=== PATIENT | male | born 1945 | race Caucasian/White ===

== ENCOUNTER 2017-03-25 15:00 | Inpatient (IN) | payer MEDICARE, OTHER ==
[~2017-03-25] VITALS: Ht 180.3 cm; Wt 98.4 kg
--- NOTE | ~2017-03-25 | OP ---
PATIENT NAME: KATIE ARMSTRONG MEDICAL RECORD: [id number] :43 LOCATION:[facility] D.CV08 ADMISSION DATE:03/25/17 SURGEON: KRYS SHRESTHA MD DATE OF OPERATION: 03/26/2017 SURGEON: Krys Shrestha MD. ANESTHESIA: General endotracheal, Dr. Dobson. OPERATION PERFORMED: Left carotid endarterectomy with patch angioplasty. PREOPERATIVE DIAGNOSIS: Critical left internal carotid artery stenosis. POSTOPERATIVE DIAGNOSIS: Critical left internal carotid artery stenosis. INDICATION FOR OPERATION: Critical left internal carotid artery stenosis. FINDINGS AT OPERATION: Critical left internal carotid artery stenosis. There were no EEG changes with clamping or unclamping of the carotid artery. ESTIMATED BLOOD LOSS: Less than 100 mL. DESCRIPTION OF PROCEDURE: After informed consent, adequate preoperative medication and evaluation, the patient was brought to the operating room, placed on table in supine position. After induction of general endotracheal anesthesia and application of appropriate monitoring devices, the left neck was prepped and draped in a sterile field, utilizing Betadine scrub, alcohol, and Betadine solution. A Betadine-impregnated drape was also used. An oblique incision was made in the skin crease. Dissection was carried down the fascia. Hemostasis maintained with electrocautery. Facial vein was identified and divided. Utilizing sharp dissection, the common carotid, internal and external carotid arteries were dissected free from surrounding structures, protecting the neurological structures. The patient was given a calculated dose of heparin. After 3 minutes, clamps were applied. After 2 minutes, no EEG changes. The arteriotomy was made and extended with Go scissors. Artery underwent endarterectomy sharply. Artery underwent extensive debridement and irrigation. Utilizing a vascular patch and running 7-0 Prolene suture, the arteriotomy was closed with patch angioplasty technique. All maneuvers to remove trapped air were performed. The clamps were removed sequentially. There were no EEG changes. The patient was given a calculated dose of protamine to reverse the heparin. Hemostasis was achieved. A #7 Arley-Mckinney drain was left in the depth of wound and brought to the base of the neck. Neck was again irrigated. Instrument count and sponge count were correct times 2. Neck was closed in layers utilizing 3-0 Vicryl on the platysma, 5-0 subcuticular Monocryl on the skin. Sterile dressings were applied. The patient tolerated the procedure well and was transferred to the CV ICU in satisfactory condition. TRANSINT:[id number] Voice Confirmation ID: [id number] DOCUMENT ID: [id number] OPERATIVE REPORT [id number] KATIE ARMSTRONG EDWARD MD CC: [id number] DICTATION DATE: 03/26/17 1045 BOAT ENGINE MECHANIC: 03/26/17 1114 ADM IN [place] [id number] [place] [id number]
--- NOTE | ~2017-03-25 | HP ---
PATIENT: KATIE ARMSTRONG MEDICAL RECORD: [id number] ACCOUNT: [id number] LOCATION:D.MS [id number] : 43 ADMISSION DATE: 03/25/17 HISTORY AND PHYSICAL EXAMINATION CHIEF COMPLAINT: Slurred speech. HISTORY OF PRESENT ILLNESS: A 71-year-old white male patient of [facility], who presents for followup of recent TIA. He has had a few of them now, most recent one lasted only a few seconds a couple days ago in which he was talking to his family and then all of a sudden, just could not talk and could not communicate at all. No facial drooping at that time; however, he has had it on previous episodes. We did an ultrasound of his carotid arteries last week, which showed occlusion of the left internal carotid artery and some blockage in the right external carotid artery. At that time, we will order a CTA and a referral to CT surgery; however, since he has had another episode over the weekend, we will admit him today directly to the hospital. REVIEW OF SYSTEMS: CONSTITUTIONAL: No fever or chills. CARDIOVASCULAR: No chest pain. RESPIRATORY: No cough or wheeze. GASTROINTESTINAL: No nausea, vomiting or diarrhea. GENITOURINARY: No dysuria. NEUROLOGIC: See HPI. PAST MEDICAL HISTORY: 1. Coronary artery disease. 2. Hyperlipidemia. 3. Hypertension. 4. Type 2 diabetes. 5. TIA. PAST SURGICAL HISTORY: Multiple rotator cuff surgeries on both shoulders, knee surgery and coronary artery stent, last one in 2011. SOCIAL HISTORY: The patient is , has 3 children, lives in [place]. 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 Nonsmoker. Drinks alcohol occasionally. ALLERGIES: PENICILLIN. MEDICATIONS: Glipizide 10 mg twice a day, atorvastatin 80 mg at night, Invokana 300 mg a day, metformin 1000 mg twice a day, Toprol-XL 50 mg a day, Ranexa 500 mg twice a day, valsartan with hydrochlorothiazide 160/25 daily, isosorbide mononitrate 30 mg daily, aspirin 81 mg a day, Victoza as directed, and Plavix 75 mg a day. PHYSICAL EXAMINATION: VITAL SIGNS: Height 5 feet 11 inches, weight 228. Temperature 98.1, pulse 79, O2 sat 94% on room air. GENERAL: No acute distress. HEENT: Normocephalic, atraumatic. NECK: Supple. LUNGS: Clear to auscultation bilaterally. HISTORY AND PHYSICAL [id number] KATIE ARMSTRONG CARDIOVASCULAR: Regular rate and rhythm. GASTROINTESTINAL: Soft, nontender to palpation. NEUROLOGIC: Awake, alert, oriented times 3. Cranial nerves II-XII grossly intact. ASSESSMENT: 1. Transient ischemic attack. 2. Carotid artery stenosis. 3. Hypertension. 4. Coronary artery disease. 5. Yer-rwdwiok-cgxtvjrue diabetes. 6. History of benign cerebral meningioma. PLAN: We will admit the patient to the hospital. Get CTA of the carotids and consult ____. TRANSINT:[id number] Voice Confirmation ID: [id number] DOCUMENT ID: [id number] REINALDO PARSON MD CC: [id number] DICTATION DATE: 03/25/17 1431 DIRECTOR HRIS: 03/25/17 1529 ADM IN [place] [id number] [place] [address]
[2017-03-25 15:57] LABS: BASOPHILS 0.2 % (0-2); EOSINOPHILS 2.9 % (0-7); HEMATOCRIT 43.6 % (42.0-54.0); HEMOGLOBIN 14.6 g/dL (13.5-17.5); IMMATURE GRANULOCYTES 0.4 % (0-5); LYMPHOCYTES 23.9 % (15-50); MCH 31.1 pg (26.0-34.0); MCHC 33.5 g/dL (31.0-37.0); MCV 92.8 fL (80.0-100.0); MEAN PLATELET VOLUME 10.1 fL (7.4-10.4); MONOCYTES 7.1 % (2-11); NEUTROPHILS 65.5 % (40-80); PLATELET COUNT 209 10x3/uL (130-400); RDW 13.1 % (11.5-14.5); WBC 10.2 10x3/uL (4.8-10.8)
[2017-03-25 16:06] VITALS: BP 117/74; Ht 180.3 cm; Wt 98.4 kg
[2017-03-25 16:16] LABS: INR 0.96 (0.85-1.17); PROTIME 12.6 SECONDS (11.6-15.0)
[2017-03-25 16:29] LABS: ALBUMIN 4.3 g/dL (3.4-5.0); ALKALINE PHOSPHATASE 75 U/L (46-116); ALT (SGPT) 36 U/L (10-68); BILIRUBIN - TOTAL 0.43 mg/dL (0.2-1.3); CALC OSMOLALITY 279 mosm/kg (275-300); CALCIUM 9.6 mg/dL (8.5-10.1); CARBON DIOXIDE 24.3 mmol/L (21.0-32.0); CHLORIDE - SERUM 103 mmol/L (98-107); GLUCOSE 80 mg/dL (74-106); POTASSIUM - SERUM 4.1 mmol/L (3.5-5.1); PROTEIN - SERUM 7.2 g/dL (6.4-8.2); SODIUM 140 mmol/L (136-145); UREA NITROGEN 19 mg/dL (7-18); eGFR NON AFRICAN AMERICAN 78 mL/min (90-120)
[2017-03-25 20:00] VITALS: BP 132/76
[2017-03-25 21:46] LABS: APPEARANCE CLEAR (CLEAR); BILIRUBIN NEGATIVE (NEGATIVE); COLOR YELLOW (YELLOW); GLUCOSE 1000 mg/dL (NEGATIVE); KETONE NEGATIVE (NEGATIVE); LEUKOCYTE ESTERASE NEGATIVE (NEGATIVE); NITRITE NEGATIVE (NEGATIVE); PROTEIN NEGATIVE (NEGATIVE); SPECIFIC GRAVITY 1.015 (1.005-1.020); UROBILINOGEN NORMAL (NORMAL)
--- NOTE | 2017-03-25 22:26 | NUR ---
PATIENT ALERT AND ORIENTED. NEURO CHECK WNL. NO SIGNS OF DISTRESS NOTED. CONSENTS SIGNS. SCHEDULED MEDS GIVEN. SHIFT ASSESSMENT COMPLETED. DENIES ANY NEEDS AT THIS TIME. BED LOW. CALL LIGHT IN REACH
[2017-03-26] VITALS (37 sets, daily range): BP systolic 103–160; BP diastolic 48–81
--- NOTE | 2017-03-26 01:53 | NUR ---
PATIENT RESTING IN BED WITH EYES CLOSED. NO VISBLE SIGNS OF DISTRESS. BED IN LOWEST POSITION AND CALL LIGHT WITHIN REACH.
--- NOTE | 2017-03-26 04:02 | NUR ---
HEPARIN STOPPED PER ORDER. NO NEEDS VOICED AT THIS TIME
[2017-03-26 06:18] LABS: BASOPHILS 0.1 % (0-2); EOSINOPHILS 3.5 % (0-7); HEMATOCRIT 42.4 % (42.0-54.0); HEMOGLOBIN 14.1 g/dL (13.5-17.5); IMMATURE GRANULOCYTES 0.4 % (0-5); LYMPHOCYTES 22.1 % (15-50); MCH 30.9 pg (26.0-34.0); MCHC 33.3 g/dL (31.0-37.0); MCV 92.8 fL (80.0-100.0); MEAN PLATELET VOLUME 10.1 fL (7.4-10.4); MONOCYTES 5.8 % (2-11); NEUTROPHILS 68.1 % (40-80); PLATELET COUNT 181 10x3/uL (130-400); RBC 4.57 10x6/uL (4.20-6.10); RDW 13.2 % (11.5-14.5)
[2017-03-26 06:25] LABS: WBC 7.4 10x3/uL (4.8-10.8)
[2017-03-26 06:45] LABS: ALBUMIN 3.7 g/dL (3.4-5.0); ALKALINE PHOSPHATASE 58 U/L (46-116); ALT (SGPT) 37 U/L (10-68); CALCIUM 8.8 mg/dL (8.5-10.1); CARBON DIOXIDE 25.4 mmol/L (21.0-32.0); CHLORIDE - SERUM 103 mmol/L (98-107); CHOL - HDL RATIO 3.9 ratio (2.3-4.9); CHOLESTEROL, TOTAL 128 mg/dL (0-200); CREATININE - SERUM 0.9 mg/dL (0.6-1.3); HDL CHOLESTEROL 33 mg/dL (32-96); POTASSIUM - SERUM 4.2 mmol/L (3.5-5.1); PROTEIN - SERUM 6.6 g/dL (6.4-8.2); SODIUM 139 mmol/L (136-145); UREA NITROGEN 15 mg/dL (7-18); eGFR NON AFRICAN AMERICAN 88 mL/min (90-120)
[2017-03-26 06:47] LABS: CALC OSMOLALITY 281 mosm/kg (275-300); GLUCOSE 158 mg/dL (74-106); TRIGLYCERIDE 519 mg/dL (30-200)
--- NOTE | 2017-03-26 10:55 | NUR ---
ADMIT TO CV ICU. VSS. DOPAMINE 2.5MCG. NO CO AT TIME.
--- NOTE | 2017-03-26 15:00 | NUR ---
CARE ASSUMED. VSS AT THIS TIME. WILL CONT TO ASSESS.
--- NOTE | 2017-03-26 16:15 | NUR ---
PRN ULTRAM ADMINISTERED FOR INSICIONAL PAIN. REFER TO EMAR.
--- NOTE | 2017-03-26 17:00 | NUR ---
PLACED FRESH ICE IN ICE PACK TO PLACE OVER INSICION SITE. PT DENIES NEEDS AT THIS TIME. CALL LIGHT IN REACH. BED IN LOW POSITION. WILL CONT TO ASSESS.
--- NOTE | 2017-03-26 19:00 | NUR ---
REPORT RECEIVED AND ASSESSMENT COMPLETED. SEE FLOWSHEET FOR FULL DETAILS. PT DENIES PAIN, AND HAS NO SIGNS OF SWELLING OR HEMATOMA. VSS. WILL MONITOR FOR CHANGES THROUGHOUT SHIFT
--- NOTE | 2017-03-26 21:00 | NUR ---
NO CHANGES IN STATUS AT THIS TIME. VSS. WILL MONITOR.
--- NOTE | 2017-03-26 23:00 | NUR ---
REASSESSMENT COMPLETED. SEE FLOWSHEET FOR FULL DETAILS. VSS. WILL CONTINUE TO MONITOR.
[2017-03-27] VITALS (34 sets, daily range): BP systolic 98–147; BP diastolic 47–68
--- NOTE | 2017-03-27 01:00 | NUR ---
CLEVIPREX ADJUSTED TO 3.25/HR NO OTHER CHANGES IN STATUS AT THIS TIME. VSS WILL MONITOR
--- NOTE | 2017-03-27 03:00 | NUR ---
REASSESSMENT COMPLETED. SEE FLOWSHEET FOR FULL DETAILS.VSS. WILL MONITOR
--- NOTE | 2017-03-27 05:00 | NUR ---
NO CHANGES I NSTATUS AT THIS TIME. VSS. WILL CONTINUE TO MONITOR.
[2017-03-27 06:19] LABS: BASOPHILS 0.2 % (0-2); EOSINOPHILS 1.9 % (0-7); HEMOGLOBIN 13.9 g/dL (13.5-17.5); IMMATURE GRANULOCYTES 0.3 % (0-5); LYMPHOCYTES 10.6 % (15-50); MCH 30.6 pg (26.0-34.0); MCHC 33.1 g/dL (31.0-37.0); MCV 92.5 fL (80.0-100.0); MEAN PLATELET VOLUME 9.6 fL (7.4-10.4); MONOCYTES 5.8 % (2-11); NEUTROPHILS 81.2 % (40-80); PLATELET COUNT 201 10x3/uL (130-400); RBC 4.54 10x6/uL (4.20-6.10); RDW 13.1 % (11.5-14.5)
[2017-03-27 06:31] LABS: WBC 11.6 10x3/uL (4.8-10.8)
[2017-03-27 06:59] LABS: ALBUMIN 3.8 g/dL (3.4-5.0); ALKALINE PHOSPHATASE 51 U/L (46-116); ALT (SGPT) 33 U/L (10-68); BILIRUBIN - TOTAL 0.76 mg/dL (0.2-1.3); CALC OSMOLALITY 276 mosm/kg (275-300); CALCIUM 8.7 mg/dL (8.5-10.1); CARBON DIOXIDE 25.2 mmol/L (21.0-32.0); CHLORIDE - SERUM 101 mmol/L (98-107); GLUCOSE 129 mg/dL (74-106); POTASSIUM - SERUM 3.9 mmol/L (3.5-5.1); PROTEIN - SERUM 6.9 g/dL (6.4-8.2); SODIUM 138 mmol/L (136-145); eGFR NON AFRICAN AMERICAN 78 mL/min (90-120)
[2017-03-27 07:03] LABS: UREA NITROGEN 11 mg/dL (7-18)
--- NOTE | 2017-03-27 07:30 | NUR ---
REPORT RECIEVED FROM MANAGER BIOLOGICS NURSE. PT RESTING IN BED QUIETLY. NO S/SX OF ACUTE DISTRESS NOTED AT THIS TIME. ASSISTED UP IN BED. BREAKFAST TRAY PLACED ON BEDSIDE TABLE. REFRESHED ICE WATER. CALL LIGHT IN REACH. BED IN LOW POSITION. FULL ASSESSMENT COMPLETE PER FLOWSHEET. WILL CONT TO ASSESS FOR CHANGES THROUGHOUT SHIFT.
--- NOTE | 2017-03-27 08:30 | NUR ---
DR. SHRESTHA AT BEDSIDE. STATED TO REMOVE A-LINE AND CARL CATHETER. REMOVED PER ORDERS WITH NO ISSUES NOTED. URINAL PLACED IN REACH. OPSITE DRESSING PLACED OVER RIGHT WRIST. WILL MONITOR.
--- NOTE | 2017-03-27 10:00 | NUR ---
ITEMS PLACED IN BATHROOM FOR PT TO GIVE HIMSELF A BATH. DENIED ASSISTANCE. INTRUCTED TO PULL CALL LIGHT STRING IN BATHROOM IF THERE WAS ANYTHING HE NEEDED. LINEN CHANGE PROVIDED. TOOTH BRUSH AND TOOTH PASTE PROVIDED.
[2017-03-27] MEDS ORDERED: PLAVIX75 MG PO (10:22)
[2017-03-27] MEDS ORDERED: ISOSORBIDE MONO30 M1 PO (10:22)
[2017-03-27] MEDS ORDERED: BYDUREON P2 MG/0.65 SC (10:22)
[2017-03-27] MEDS ORDERED: VICTOZA0.6 MG/0.1 SQ (10:22)
[2017-03-27] MEDS ORDERED: RANEXA500 MG PO (10:23)
[2017-03-27] MEDS ORDERED: GLUCOPHAGE1000 MG PO (10:23)
[2017-03-27] MEDS ORDERED: GLIPIZIDE10 MG PO (10:23)
[2017-03-27] MEDS ORDERED: DIOVAN HCT 160/1 TA1 PO (10:23)
[2017-03-27] MEDS ORDERED: TOPROL XL50 MG PO (10:23)
[2017-03-27] MEDS ORDERED: LIPITOR80 MG PO (10:23)
[2017-03-27] MEDS ORDERED: INVOKANA300 MG PO (10:24)
[2017-03-27] MEDS ORDERED: RANEXA1000 MG PO (10:24)
--- NOTE | 2017-03-27 11:00 | NUR ---
BROTHER AT BEDSIDE AWAITING DISCHARGE.
--- NOTE | 2017-03-27 12:00 | NUR ---
FSBS CHECKED. LUNCH TRAY PLACED IN REACH. DENIES FURTHER NEEDS.
[2017-03-27] MEDS ORDERED: ASPIRIN81 MG PO (13:17)
[2017-03-27] MEDS ORDERED: ULTRAM50 MG PO (13:20)
--- NOTE | 2017-03-27 13:45 | NUR ---
DISCHARGE INSTRUCTIONS REVIWED WITH PT. QUESTIONS ANSWERED. RIGHT DL SC REMOVED PER ORDERS. CATH INTACT. OPSITE DRESSING PLACED OVER SITE. WHEELED OUT FOR TRANSPORTAION.
== END 2017-03-27 14:00 | disposition home or self-care (01) | DRG 39 ==
LOC: D.MS 15:00 → D.CVICU 15:00 → D.SDCHOLD 15:00 → D.CVICU 03-26 09:43
PROVIDERS: Family Medicine Adult Medicine; Internal Medicine Cardiovascular Disease; ADMIT Family Medicine
PROC: 03UL0KZ Supplement Left Internal Carotid Artery with Nonautologous Tissue Substitute, Open Approach (ICD-10-PCS; 2017-03-26)
PROC: 03CL0ZZ Extirpation of Matter from Left Internal Carotid Artery, Open Approach (ICD-10-PCS; principal; 2017-03-26 07:30)
DX: I65.23 Occlusion and stenosis of bilateral carotid arteries (principal); E11.9 Type 2 diabetes mellitus without complications; I10 Essential (primary) hypertension; E78.5 Hyperlipidemia, unspecified; Z86.73 Personal history of transient ischemic attack (TIA), and cerebral infarction without residual deficits; I25.119 Atherosclerotic heart disease of native coronary artery with unspecified angina pectoris

== ENCOUNTER → 2017-04-26 10:36 | Outpatient (CLI) | payer OTHER ==
[2017-03-25 16:06] VITALS: BMI 29.7
--- NOTE | ~2017-04-26 | EC ---
PATIENT:KATIE ARMSTRONG DATE OF SERVICE: 04/26/17 SEX: M MEDICAL RECORD: [id number] DATE OF : 43 LOCATION:D.[facility] AGE OF PATIENT: 71 ADMISSION DATE: 04/26/17 REFERRING PHYSICIAN: INTERPRETING PHYSICIAN: CHRISTIE COLLADO MD ECHOCARDIOGRAM REPORT ECHO CHARGES 4 ECHO COMPLETE CLINICAL DIAGNOSIS: CAD/ASSESS EF HX OF CAD/STENTS/R ENDARTECTOMY ECHOCARDIOGRAPHIC MEASUREMENTS (adult normal given) AC root (d.<3.7cm) 4.3 LV Septum d (<1.2 cm> 1.5 Valve Excursion 1.5 LV Septum (systole) 2.0 Left Atria (s.<4.0cm> 4.1 LVPW d(<1.2cm) 2.0 RV (d.<2.3cm) 3.7 LVPW (sytole) 2.1 LV diastole(<5.6CM) 5.1 MV E-F(>70mm/sec) LV systole 3.0 LVOT Diameter 1.5 MV exc.(>10mm) 1.3 Est.ejection fraction (50-75%) Pericardial Effusion N DOPPLER: LVIT A 78.0 E 47.0 LA RVSP 26 LVOT 130 AOP1/2T Asc. Ao 197 RVOT 98 RA PA 166 AV Gradient Peak 15.59 AV Mean 8.34 AV Area 1.3 MV Gradient Peak 3.62 MV Mean 1.32 MV Area COMMENTS: Credit Portfolio Advisor: Lluvia JOINER Supplemental Manager:1 Dr. Collado TAPE# PACS DATE OF SERVICE: 04/26/2017 Echocardiogram FINDINGS: 1. Left ventricular chamber size is within normal limits. Left ventricular systolic function is normal. Overall ejection fraction estimated at 60%. 2. Left atrium is enlarged at 4.1 cm. Right atrium and right ventricular chamber sizes are as well mildly dilated. 3. Valvular structures: Aortic valve demonstrates mild calcific aortic ECHOCARDIOGRAM REPORT [id number] KATIE ARMSTRONG stenosis. Valve area calculates to 1.3 cm-squared. There is a gradient of 15 mm across the valve. The remaining valvular structures have normal structure and motion. 4. Doppler interrogation elsewise reveals mild tricuspid regurgitation, no other valvular insufficiency or stenosis. Pulmonary systolic pressure is normal estimated at 26 mmHg. 5. No evidence of pericardial effusion or left ventricular thrombus. TRANSINT:[id number] Voice Confirmation ID: [id number] DOCUMENT ID: [id number] CHRISTIE COLLADO MD CC: [id number] DICTATION DATE: 04/26/17 1507 DATABASE DEVELOPER: 04/26/17 [address] [id number] [place] [id number]
[~2017-04-26 10:36] MED LIST: ASPIRIN81 MG PO; BYDUREON P2 MG/0.65 SC; DIOVAN HCT 160/1 TA1 PO; GLIPIZIDE10 MG PO; GLUCOPHAGE1000 MG PO; INVOKANA300 MG PO; ISOSORBIDE MONO30 M1 PO; LIPITOR80 MG PO; PLAVIX75 MG PO; RANEXA1000 MG PO; RANEXA500 MG PO; TOPROL XL50 MG PO; ULTRAM50 MG PO; VICTOZA0.6 MG/0.1 SQ
== END | disposition home or self-care (01) ==
LOC: D.ECHO 04-24 09:00
DX: I25.10 Atherosclerotic heart disease of native coronary artery without angina pectoris (principal)

== ENCOUNTER 2017-06-17 19:37 | Inpatient (IN) | payer MEDICARE, OTHER ==
[~2017-06-17] VITALS: Ht 180.3 cm; Wt 96.5 kg
--- NOTE | ~2017-06-17 | EEG ---
PATIENT:KATIE ARMSTRONG DATE OF SERVICE: 06/19/17 MEDICAL RECORD: [id number] DATE OF : 43 LOCATION:D.211 D.M2 ADMISSION DATE: 06/19/17 REFERRING PHYSICIAN: INTERPRETING PHYSICIAN: KENYATTA STEPHENS MD DATE OF SERVICE: 06/19/2017 Electroencephalographic Report REFERRED BY: Dr. Smallwood as an inpatient, currently in room 2119. ELECTROENCEPHALOGRAM NUMBER: [id number]. DATE OF EXAMINATION: 06/19/2017 at 3:00 p.m. TECHNICAL DATA: This electroencephalographic recording consists of approximately 20 minutes of data collection utilizing the international 10/20 system of electrode placement and both referential and non-referential montages. Sixteen channels of electrocerebral recording are accompanied by a 17th channel dedicated to the electrocardiographic rhythm and 2 channels of electromyographic recording. Recording is performed in the awake and drowsy states utilizing activation by photic stimulation. ELECTROENCEPHALOGRAPHIC DATA: The awake state comprises approximately 30% of the recorded electrocerebral activity. Electromyographic artifact is prominent and rapid eye movements are seen. The posterior dominant background consists of a symmetric semi-arrhythmic waxing and waning 8-9 Hz alpha activity, which is suppressed by eye opening. The drowsy state comprises the remaining portion of the recorded electrocerebral activity. Electromyographic artifact is diminished and rapid eye movements are not seen. The posterior dominant background is relatively suppressed. Also seen is a semi-arrhythmic, intermittent 5-6 Hz theta activity, which occurs for periods of 1-2 seconds approximately once every 2-3 pages. This is generalized, diffuse and symmetric in distribution. No abnormal nor focal slowing is identified. No epileptiform discharges are seen. Photic stimulation induces no abnormal change in the recorded electrocerebral activity. INTERPRETATION: Normal (awake and drowsy). This is a normal electroencephalographic recording. TRANSINT:[id number] Voice Confirmation ID: [id number] DOCUMENT ID: [id number] ELECTROENCEPHALOGRAM REPORT [id number] KATIE ARMSTRONG KENYATTA STEPHENS MD CC: [id number] DICTATION DATE: 06/20/17727 REGIONAL TRAINING MANAGER: 06/20/17 0833 ADM IN [facility] [address] [place] [address]
[2017-06-17 19:36] VITALS: BP 139/72
--- NOTE | 2017-06-17 20:30 | NUR ---
ADMIT TO ROOM 2117 DIRECT ADMIT FROM MD OFFICE FOR ARRHYTHMIA. AMBULATORY AND VOICING NO PAIN OR DISCOMFORT. ACCOMPANIED BY . SEE ADMISSION ASSESSMENT AND HISTORY. HOME MEDS REVIEWED. INITIATE PLAN OF CARE.
--- NOTE | 2017-06-17 21:35 | NUR ---
PHONE CALL TO DR SHRESTHA TO NOTIFY OF CONSULT. HE WAS UNAWARE THAT PT WAS BEING ADMITTED. WILL IMPLEMENT OTHER ORDERS SENT WITH PATIENT FROM DR GARCIATIONS OFFICE. SPOKE WITH RADIOLOGY. WILL DO CXR TONIGHT AND SCHEDULE PT FOR CT OF HEAD AND CAROTID US FOR TOMORROW AFTER MD'S HAVE HAD A CHANCE TO CONFER ON PLAN OF CARE.
[2017-06-17 22:20] LABS: BASOPHILS 0.4 % (0-2); EOSINOPHILS 4.6 % (0-7); HEMOGLOBIN 12.5 g/dL (13.5-17.5); IMMATURE GRANULOCYTES 0.3 % (0-5); LYMPHOCYTES 29.6 % (15-50); MCH 30.7 pg (26.0-34.0); MCHC 33.8 g/dL (31.0-37.0); MCV 90.9 fL (80.0-100.0); MEAN PLATELET VOLUME 9.8 fL (7.4-10.4); MONOCYTES 5.1 % (2-11); PLATELET COUNT 179 10x3/uL (130-400); RBC 4.07 10x6/uL (4.20-6.10); RDW 12.7 % (11.5-14.5); WBC 7.2 10x3/uL (4.8-10.8)
[2017-06-17 22:34] LABS: APTT 27.3 SECONDS (22.8-39.4); INR 0.96 (0.85-1.17); PROTIME 12.7 SECONDS (11.6-15.0)
[2017-06-17 22:40] LABS: ALBUMIN 3.5 g/dL (3.4-5.0); ANION GAP 12.4 mmol/L (8-16); BILIRUBIN - TOTAL 0.3 mg/dL (0.2-1.3); CALCIUM 9.1 mg/dL (8.5-10.1); CARBON DIOXIDE 29.2 mmol/L (21.0-32.0); CREATININE - SERUM 1.1 mg/dL (0.6-1.3); POTASSIUM - SERUM 3.6 mmol/L (3.5-5.1); PROTEIN - SERUM 6.3 g/dL (6.4-8.2)
--- NOTE | 2017-06-18 00:30 | NUR ---
WIRE COATER AT BEDSIDE TO OBTAIN VITALS, CALL LIGHT IN REACH. WILL CONTINUE WITH PLAN OF CARE.
[2017-06-18 01:53] VITALS: BP 148/78
--- NOTE | 2017-06-18 04:57 | NUR ---
PT HAS RESTED WITH NO DISTRESS. SALINE LOCK TO LFA. SR PER TELEMETRY. MONITOR AND CPOC.
[2017-06-18 05:56] VITALS: BP 145/83
--- NOTE | 2017-06-18 07:52 | NUR ---
RESTING QUIETLY RESP UNLABORED DENIES ANY NEEDS OR DISCOMFORT AT THIS TIME NAD NOTED
[2017-06-18 08:00] VITALS: BP 141/79
[2017-06-18 11:55] VITALS: BP 120/70
[2017-06-18 12:12] VITALS: Ht 180.3 cm; Wt 96.5 kg
[2017-06-18 15:36] VITALS: BP 96/63
[2017-06-18 16:02] LABS: APPEARANCE HAZY (CLEAR); BILIRUBIN NEGATIVE (NEGATIVE); COLOR YELLOW (YELLOW); GLUCOSE 1000 mg/dL (NEGATIVE); KETONE NEGATIVE (NEGATIVE); LEUKOCYTE ESTERASE 1+ (NEGATIVE); NITRITE NEGATIVE (NEGATIVE); PROTEIN NEGATIVE (NEGATIVE); UROBILINOGEN NORMAL (NORMAL)
[2017-06-18 16:04] LABS: BACTERIA FEW /hpf (NONE SEEN); RED CELLS - URINE 0-5 /hpf (0-5); WHITE CELLS - URINE >50 /hpf (0-5)
--- NOTE | 2017-06-18 16:39 | NUR ---
FSBS 124
[2017-06-18 20:01] VITALS: BP 146/79
[2017-06-19 00:17] VITALS: BP 117/77
[2017-06-19 04:46] VITALS: BP 158/90
--- NOTE | 2017-06-19 05:32 | NUR ---
PT SLEPT ALL NIGHT. NO DISTRESS.
[2017-06-19 06:53] LABS: BASOPHILS 0.2 % (0-2); HEMATOCRIT 41.7 % (42.0-54.0); IMMATURE GRANULOCYTES 0.3 % (0-5); LYMPHOCYTES 19.5 % (15-50); MCH 30.4 pg (26.0-34.0); MCHC 33.6 g/dL (31.0-37.0); MCV 90.7 fL (80.0-100.0); MONOCYTES 5.3 % (2-11); NEUTROPHILS 70.7 % (40-80); PLATELET COUNT 197 10x3/uL (130-400); RDW 12.9 % (11.5-14.5); WBC 9.2 10x3/uL (4.8-10.8)
[2017-06-19 07:03] LABS: INR 0.96 (0.85-1.17); PROTIME 12.6 SECONDS (11.6-15.0)
[2017-06-19 07:06] LABS: CALC OSMOLALITY 285 mosm/kg (275-300); CALCIUM 9.3 mg/dL (8.5-10.1); CARBON DIOXIDE 28.8 mmol/L (21.0-32.0); CHLORIDE - SERUM 103 mmol/L (98-107); CREATININE - SERUM 0.9 mg/dL (0.6-1.3); SODIUM 141 mmol/L (136-145); UREA NITROGEN 19 mg/dL (7-18); eGFR NON AFRICAN AMERICAN 88 mL/min (90-120)
[2017-06-19 07:07] LABS: GLUCOSE 150 mg/dL (74-106)
--- NOTE | 2017-06-19 08:00 | NUR ---
CTA SCHEDULED. MAKE NPO UNTIL CTA COMPLETE. INFORM PATIENT NOT TO EAT OR DRINK ANYTHING UNTIL TAKEN TO CT. DENIES ANY NEEDS. BED LOCKED AND LOW. CALL LIGHT IN REACH. TWO SIDERAILS UP. REFUSE SCDs. SINUS RHYTHM 78bpm ON TELEMETRY.
[2017-06-19 08:19] VITALS: BP 168/87
[2017-06-19 12:05] VITALS: BP 104/54
[2017-06-19 14:25] LABS: PLT FUNCT.(P2Y12) PLAVIX 169 PRU (194-418)
--- NOTE | 2017-06-19 18:35 | NUR ---
ALERT AND ORIENTED X4. RESTING IN BED. DENIES SOB OR PAIN. NO CHANGE. SINUS RHTHYM ON TELEMETRY. CONTINUE PLAN OF CARE AND SAFETY PRECAUTIONS.
[2017-06-19 19:00] VITALS: BP 137/46; BP 169/84
--- NOTE | 2017-06-19 19:59 | NUR ---
RESUMED CARE OF PT, LYING IN BED RESPIRATIONS EVEN AND UNLABORED ON ROOM AIR. 75 SR ON TELEMETRY. LEFT FOREARM SALINE LOCKED. NO NEEDS VOICED AT THIS TIME, PLAN OF CARE DISCUSSED. CALL LIGHT IN REACH. SEE NURSE ASESSSMENT. WILL CONTINUE TO MONITOR.
[2017-06-20] VITALS: BP 137/87
[2017-06-20 05:24] LABS: BASOPHILS 0.1 % (0-2); EOSINOPHILS 3.5 % (0-7); HEMOGLOBIN 14.5 g/dL (13.5-17.5); IMMATURE GRANULOCYTES 0.2 % (0-5); LYMPHOCYTES 17.9 % (15-50); MCH 30.9 pg (26.0-34.0); MCHC 34.5 g/dL (31.0-37.0); MCV 89.6 fL (80.0-100.0); MEAN PLATELET VOLUME 9.9 fL (7.4-10.4); MONOCYTES 6.3 % (2-11); PLATELET COUNT 184 10x3/uL (130-400); RBC 4.69 10x6/uL (4.20-6.10); RDW 12.8 % (11.5-14.5); WBC 9.1 10x3/uL (4.8-10.8)
[2017-06-20 05:43] LABS: CALC OSMOLALITY 284 mosm/kg (275-300); CALCIUM 9.1 mg/dL (8.5-10.1); CARBON DIOXIDE 26.2 mmol/L (21.0-32.0); CHLORIDE - SERUM 103 mmol/L (98-107); GLUCOSE 146 mg/dL (74-106); POTASSIUM - SERUM 3.8 mmol/L (3.5-5.1); SODIUM 140 mmol/L (136-145); UREA NITROGEN 21 mg/dL (7-18); eGFR NON AFRICAN AMERICAN 78 mL/min (90-120)
--- NOTE | 2017-06-20 07:30 | NUR ---
ASSESSMENT DONE. DENIES NEEDS.
[2017-06-20 08:17] VITALS: BP 107/67
--- NOTE | 2017-06-20 08:40 | NUR ---
PT SITTING UP IN CHAIR EATING BREAKFAST. MONITOR SHOWS NSR AT 78. WILL CONTINUE TO MONITOR.
[2017-06-20 11:22] VITALS: BP 110/72
[2017-06-20] MEDS ORDERED: EFFIENT10 MG PO (14:04)
[2017-06-20] MEDS ORDERED: ASPIRIN81 MG PO (14:06)
[2017-06-20] MEDS ORDERED: KEPPRA250 MG PO (15:56)
--- NOTE | 2017-06-20 16:06 | NUR ---
dc given to pt
--- NOTE | 2017-06-20 16:06 | NUR ---
DC HOME PER PERSONAL CAR
--- NOTE | 2017-06-21 11:24 | EC ---
PATIENT:KATIE ARMSTRONG DATE OF SERVICE: 06/19/17 SEX: M MEDICAL RECORD: [id number] DATE OF : 43 LOCATION:D. D.211 AGE OF PATIENT: 71 ADMISSION DATE: 06/19/17 REFERRING PHYSICIAN: INTERPRETING PHYSICIAN: CHRISTIE COLLADO MD ECHOCARDIOGRAM REPORT ECHO CHARGES 5 ECHO LIMITED 1 DOPPLER ECHO COLOR FLOW 2 DOPPLER ECHO PULSE CLINICAL DIAGNOSIS: TIA ECHOCARDIOGRAPHIC MEASUREMENTS (adult normal given) AC root (d.<3.7cm) 0 cm LV Septum d (<1.2 cm> 0 cm Valve Excursion 0 cm LV Septum (systole) 0 cm Left Atria (s.<4.0cm> 0 cm LVPW d(<1.2cm) 0 cm RV (d.<2.3cm) 0 cm LVPW (sytole) 0 cm LV diastole(<5.6CM) 0 cm MV E-F(>70mm/sec) 0 cm LV systole 0 cm LVOT Diameter 2.0 cm MV exc.(>10mm) 0 cm Est.ejection fraction (50-75%) % Pericardial Effusion N DOPPLER: LVIT cm/sec A 0 cm/sec E 0 cm/sec LA 0 cm/sec RVSP 34.1 mmHg LVOT 110 cm/sec AOP1/2T 0 m/s Asc. Ao 187 cm/sec RVOT 0 cm/sec RA 0 cm/sec PA 0 cm/sec AV Gradient Peak 14.0 mmHg AV Mean 6.6 mmHg AV Area 1.9 cm MV Gradient Peak 0 mmHg MV Mean 0 mmHg MV Area 0 cm COMMENTS: LIMITED STUDY (2-D,COLOR,DOPPLER) COMPLETE ECHO DONE ON 04/26/17 Car Mechanic Helper: Armin [employer] Owner: 1 Dr. Collado TAPE# PACS DATE OF SERVICE: 06/19/2017 Limited Echocardiogram FINDINGS: 1. Left ventricular chamber size is within normal limits. Left ventricular systolic function is normal. Overall ejection fraction estimated at 60%. 2. Left atrium, right atrium, and right ventricular chamber sizes are within normal limits. 3. Valvular structures have normal structure and motion. ECHOCARDIOGRAM REPORT [id number] KATIE ARMSTRONG 4. Doppler interrogation only reveals trace mitral regurgitation, trace tricuspid regurgitation, neither of which are hemodynamically significant. 5. No evidence of pericardial effusion or left ventricular thrombus. TRANSINT:[id number] Voice Confirmation ID: [id number] DOCUMENT ID: [id number] CHRISTIE COLLADO MD at 1124 CC: [id number] DICTATION DATE: 06/19/171721 TOW MOTOR DRIVER: 06/20/17 0105 DIS IN 06/20/17 [facility] [address] [place] [id number]
== END 2017-06-20 16:07 | disposition home or self-care (01) | DRG 69 ==
LOC: D.M2 19:37 → OBSVTIME 19:37 → D.M2 06-19 08:43
PROVIDERS: Internal Medicine Cardiovascular Disease; ADMIT Family Medicine
DX: G45.9 Transient cerebral ischemic attack, unspecified (principal); R47.01 Aphasia; G40.109 Localization-related (focal) (partial) symptomatic epilepsy and epileptic syndromes with simple partial seizures, not intractable, without status epilepticus; E11.65 Type 2 diabetes mellitus with hyperglycemia; I10 Essential (primary) hypertension; I65.23 Occlusion and stenosis of bilateral carotid arteries; I25.119 Atherosclerotic heart disease of native coronary artery with unspecified angina pectoris; D32.0 Benign neoplasm of cerebral meninges; I08.1 Rheumatic disorders of both mitral and tricuspid valves; Z95.5 Presence of coronary angioplasty implant and graft; Z86.73 Personal history of transient ischemic attack (TIA), and cerebral infarction without residual deficits

== ENCOUNTER → 2017-06-27 10:23 | Outpatient (CLI) | payer MEDICARE, OTHER ==
[2017-06-18 12:12] VITALS: BMI 29.9
[~2017-06-27 10:23] MED LIST changes: +EFFIENT10 MG PO; +KEPPRA250 MG PO
[2017-06-27 12:00] LABS: PLT FUNCT.(P2Y12) PLAVIX 117 PRU (194-418)
== END | disposition home or self-care (01) ==
LOC: D.LAB 10:23
PROVIDERS: Internal Medicine Cardiovascular Disease
DX: Z51.81 Encounter for therapeutic drug level monitoring (principal); Z79.899 Other long term (current) drug therapy

== ENCOUNTER → 2017-07-11 12:39 | Outpatient (CLI) | payer MEDICARE, OTHER ==
[2017-06-18 12:12] VITALS: BMI 29.9
[2017-07-11 13:04] LABS: PLT FUNCT.(P2Y12) PLAVIX 122 PRU (194-418)
== END | disposition home or self-care (01) ==
LOC: D.LAB 12:39
PROVIDERS: Internal Medicine Cardiovascular Disease
DX: Z79.02 Long term (current) use of antithrombotics/antiplatelets (principal)

== ENCOUNTER 2017-09-03 07:05 | Inpatient (IN) | payer MEDICARE, OTHER ==
[2017-09-03] VITALS (32 sets, daily range): BP systolic 108–151; BP diastolic 51–73; BMI 29.9; BMI 30.8
[2017-09-03 08:30] LABS: HEMATOCRIT 40.1 % (42.0-54.0); HEMOGLOBIN 13.6 g/dL (13.5-17.5); MCH 30.1 pg (26.0-34.0); MCHC 33.9 g/dL (31.0-37.0); MCV 88.7 fL (80.0-100.0); RBC 4.52 10x6/uL (4.20-6.10); RDW 13.1 % (11.5-14.5)
[2017-09-03 08:35] LABS: APPEARANCE HAZY (CLEAR); BACTERIA MODERATE /hpf (NONE SEEN); BILIRUBIN NEGATIVE (NEGATIVE); COLOR YELLOW (YELLOW); EPITHELIAL CELLS 0-5 /hpf (0-5); GLUCOSE NEGATIVE (NEGATIVE); KETONE NEGATIVE (NEGATIVE); MUCUS <1+ /lpf (NONE SEEN); NITRITE NEGATIVE (NEGATIVE); PROTEIN NEGATIVE (NEGATIVE); RED CELLS - URINE 0-5 /hpf (0-5); UROBILINOGEN NORMAL (NORMAL); WHITE CELLS - URINE 25-50 /hpf (0-5)
[2017-09-03 08:38] LABS: APTT 27.6 SECONDS (22.8-39.4); INR 0.88 (0.85-1.17); PROTIME 11.7 SECONDS (11.6-15.0)
[2017-09-03 08:44] LABS: ALBUMIN 4.2 g/dL (3.4-5.0); ALKALINE PHOSPHATASE 84 U/L (46-116); ALT (SGPT) 45 U/L (10-68); BILIRUBIN - TOTAL 0.42 mg/dL (0.2-1.3); CALC OSMOLALITY 281 mosm/kg (275-300); CALCIUM 9.2 mg/dL (8.5-10.1); CHLORIDE - SERUM 102 mmol/L (98-107); GLUCOSE 140 mg/dL (74-106); POTASSIUM - SERUM 4.1 mmol/L (3.5-5.1); PROTEIN - SERUM 7.6 g/dL (6.4-8.2); SODIUM 139 mmol/L (136-145); UREA NITROGEN 18 mg/dL (7-18); eGFR NON AFRICAN AMERICAN 78 mL/min (90-120)
[2017-09-03] MEDS ORDERED: ASPIRIN325 MG PO (11:26)
[2017-09-03] MEDS ORDERED: METOPROLOL TART50 MG PO (11:29)
--- NOTE | 2017-09-03 11:37 | HP ---
PATIENT: KATIE ARMSTRONG MEDICAL RECORD: [id number] ACCOUNT: [id number] LOCATION:[facility]04 : 43 ADMISSION DATE: 09/03/17 HISTORY AND PHYSICAL EXAMINATION NameKATIE ARMSTRONG (71yo, M) ID# [id number]. Date/Time08/22/2017 09:[id number] 1944[facility] Dept.[facility] ClinicProviderEDCASI SHRESTHA MDInsuranceMed Primary: [place] Insurance # : [id number] PCP : SHIV KAHN Referring Provider Name : SHIV KAHN Employer Name : RETIRED Med Secondary: [employer] [place] ([place]) Insurance # : [id number] Policy/Group # : [id number] Employer Name : RETIRED Med Contracts: [employer] Insurance # : [id number] Employer Name : RETIRED Prescription: CMX - Member is eligible. Chief Complaint Followup: Carotid artery stenosis s/p LCEA 03/26/17 need RCEA? Patient's Care Team Primary Care Provider (): SHIV KAHN: [address] [address], , Referring Provider (): SHIV KAHN: [address] [place] [address], , Patient's Pharmacies [facility]): [address] [facility] [address], [place] [address], , Vitals BP:132/82 sitting R arm 08/22/2017 09:05 amHR:88R/R 08/22/2017 09:05 amHt:5 ft 11 in 08/22/2017 09:03 amWt:211 lbs 08/22/2017 09:04 amBMI:29.4 08/22/2017 09:04 amAllergies Reviewed Allergies PENICILLINSMedications Reviewed Medications atorvastatin 80 mg /28/17 filledCaremarkazithromycin 250 mg /18/17 filledCaremarkBydureon 2 mg/0.65 mL subcutaneous pen ploqgkpl16/21/17 filledCaremarkclopidogrel 75 mg fvovey44/24/17 filledCaremarkEffient 10 mg illrwo81/21/17 filledCaremarkglipiZIDE 10 mg eqrpxt14/28/17 filledCaremarkInvokana 300 mg quwudo60/28/17 filledCaremarkisosorbide mononitrate ER 30 mg tablet,extended release 24 hr03/19/17 filledCaremarklevETIRAcetam 250 mg /21/17 filledCaremarkmetFORMIN 1,000 mg jouoxy35/28/17 filledCaremarkmetoprolol succinate ER 50 mg tablet,extended release 24 hr01/22/17 filledCaremarkRanexa 1,000 mg tablet,extended lmrbyjx67/23/17 filledCaremarkRanexa 500 mg tablet,extended ztcuzrs43/28/17 filledCaremarktraMADol 50 mg reejho50/03/17 filledCaremarkvalsartan 160 mg-hydrochlorothiazide 25 mg kbnbvi29/21/17 filledCaremarkVictoza 3-Francois 0.6 mg/0.1 mL (18 mg/3 mL) subcutaneous pen ktkyqlsu81/25/17 filledCaremarkProblems Reviewed Problems Carotid artery stenosis - Onset: 03/26/2017 HISTORY AND PHYSICAL [id number] KATEI ARMSTRONG Family History Discussed Family History Social History Discussed Social History Cardiology Smoking Status: Never smoker High Cholesterol: Y High blood pressure: Y Diabetes: Y Alcohol intake: Occasional Marital status: Is blood transfusion acceptable in an emergency?: Y Surgical History Reviewed Surgical History Other - PTCA/stents Other - Left knee surgery Other - Bilaterial rotator cuff Carotid Endarterectomy - 03/26/2017 - left Past Medical History Discussed Past Medical History Carotid Stenosis: Y Diabetes: Y Hyperlipidemia: Y Hypertension: Y Documents for Discussion N/A Screening None recorded. HPI Cerebral Vascular Disease Reported by patient. Quality: dizziness Aggravating Factors: position change carotid artery disease ROS Patient reports no loss of consciousness, no weakness, no numbness, no seizures, no dizziness, and no headaches; history of limited seizure activity in [facility]. He reports no fever, no night sweats, no significant weight gain, no significant weight loss, and no exercise intolerance. He reports no dry eyes, no irritation, and no vision change. He reports no difficulty hearing and no ear pain. He reports no frequ e nt nosebleeds and no nose/sinus problems. He reports no sore throat, no bleeding gums, no snoring, no dry mouth, no mouth ulcers, no oral abnormalities, and no teeth problems. He reports no jugular vein distension and no swollen glands. He reports no ches t pain, no arm pain on exertion, no shortness of breath when walking, no shortness of breath when lying down, no palpitations, and no known heart murmur. He reports no cough, no wheezing, no shortness of breath, and no coughing up blood. He reports no abdo m inal pain, no vomiting, normal appetite, no diarrhea, not vomiting blood, no nausea, and no constipation. He reports no incontinence, no difficulty urinating, no hematuria, and no increased frequency. He reports no muscle aches, no muscle weakness, no art h ralgias/joint pain, no back pain, and no swelling in the extremities. He reports no abnormal mole, no jaundice, and no rashes. He reports no depression, no sleep disturbances, feeling safe in relationship, and no alcohol abuse. He reports no fatigue. He r eports no swollen glands and no bruising. He HISTORY AND PHYSICAL [id number] KATIE ARMSTRONG reports no runny nose, no sinus pressure, no itching, no hives, and no frequent sneezing. ROS as noted in the HPI Physical Exam Patient is a 71-year-old male. Constitutional: General Appearance well nourished and developed and healthy-appearing. Level of Distress NAD. Ambulation ambulating normally. Cardiovascular: Apical Impulse not displaced or no thrill. Heart Auscultation normal s1 and s2; no murmurs, rubs, or gallops; and RRR. Arterial Pulses no abdominal aorta bruits, femoral bruits, or popliteal bruits and 2+ bilateral, carotid 2+ bilateral, femoral 2+ bilateral, popliteal 2+ bilateral, and dorsalis pedis 2+ bilateral. Edema no edema or varicosities. Lungs: Repiratory Effort no dyspnea. Percussion no hyp erresonance or dullness or flatness. Auscultation no wheezing, rhonchi, or rales / crackles and breathing sounds normal, good air movement, and CTA except as noted. Abdomen: Bowl Sounds normal. Inspection and Palpation no tenderness, guarding, masses, or rebound tenderness and soft and non-distended. Liver non-tender and no hepatomegaly. Spleen non-tender and no splenomegaly. Hernia none palpable. Musculoskeletal System: Gait And Stance normal gait and stance. Digits and Nails normal nails and no cyanosis. Neurologic: Cranial Nerves grossly intact. Reflexes DTRs 2+ bilaterally throughout. Sensation grossly intact. Lymph Nodes: Lymph Nodes no cervical LAD, supraclavicular LAD, axillary LAD, or inguinal LAD. Eyes: Lids and Conjunctivae no discharge or pallor and non-injected. Pupils PERRLA. Cornea grossly intact. EOM EOMI. Lens clear. Sclerae non-icteric. Neck: Neck no masses or enlarged lymph nodes and supple, trachea midline, and carotid bruits (right internal carotid artery). Thyroid no enlargement or nodules and non-tender. Skin: Inspection and Palpation no rash, lesions, ulcers, jaundice, or abnormal nevi. Assessment / Plan right carotid artery stenosis 1. Carotid artery stenosis I65.23: Occlusion and stenosis of bilateral carotid arteries CAROTID STENOSIS: CARE INSTRUCTIONS Discussion Notes scheduled for right carotid endarterectomy. I have discussed his disease process with him in detail as well as the alternative methods of treatment. We discussed right carotid endarterectomy including t he expected benefits and risk which included bleeding, infection, stroke, , and the imponderables. After hearing the expected benefits and risk he would like proceed with right carotid endarterectomy Scheduled for 03 September HISTORY AND PHYSICAL [id number] KATIE ARMSTRONG EDWARD MD at 1137 CC: [id number] DICTATION DATE: 08/22/17 0900 CHECKER PRODUCT DESIGN: DM 08/26/17 1658 ADM IN [facility] [address] [place] [address]
--- NOTE | 2017-09-03 16:09 | NUR ---
PT ARRIVED BY BED FROM OR. SWITCHED OVER TO CVICU MONITORS. VSS AT THIS TIME. ICE PACK TO RIGHT NECK. PT ALERT AND ORIENTED. SCDs APPLIED. CALL LIGHT WITHIN REACH.
--- NOTE | 2017-09-03 16:35 | NUR ---
DR. SHRESTHA AT BEDSIDE WITH PT AND PT'S FAMILY. UPDATED THEM ON PT'S STATUS.
--- NOTE | 2017-09-03 18:26 | NUR ---
PT RESTING COMFORTABLY AT THIS TIME. VSS. ABLE TO WEAN OFF NITRO GTT AT THIS TIME. WILL CONTINUE TO MONITOR.
--- NOTE | 2017-09-03 19:30 | NUR ---
REPORT RECEIVED AND CARE ASSUMED. INITIAL SHIFT ASSESSMENT COMPLETED SEE FLOWSHEET. PT CURRENTLY BEING MONITORED PER STANDARD CVICU PROTOCOL WTIH ALL ALARMS VERIFIED AND SET. A-LINE LEVELED AND ZEROED. ALL IV LINES AND FLUIDS ARE CURRENT AND NOT DUE TO BE CHANGED. LABELED PER HOPITAL PROTOCOL. NEURO CHECKS INTACT FOR PT. DRESSUBG TO RIGHT SIDE OF NECK CDI AND IS SURGICAL DRESSING. NO EDEMA NOTED. ICE PACK TO SITE. FRESH ICE PACK APPLIED. DARCY DRAIN TO RIGHT UPPER CHEST COMPRESSED AND 50CC OF BLODDY DRAINAGE EMPTIED, RECOMPRESSED.
--- NOTE | 2017-09-03 21:00 | NUR ---
SB/P INCREASED OVER ORDERED 140 LIMITS NITRO RESTARTED PER IV FLOWSHEET. ALL ADJUSTMENTS RECORDED THERE. HS MEDS GIVEN DOCUMENTED ON JAN. PT WAS GIVEN ULTRAM FOR SLIGHT HEADACHE. NO SWALLOWING DIFFICULTY NOTED
--- NOTE | 2017-09-03 23:00 | NUR ---
SHIFT REASSESSMENT COMPLETED SEE FLOWSHEET. PT IS NOW CURRENTLY ON NITRO AT 3ML/HR TO MAINTAIN ORDERED PARIMETERS. PT PERFORMED PERSONAL HYGIENE WITH SET UP HELP ONLY. IS INDEPENDENTLY TURNING SELF. RIGHT NECK IS SOFT AND SUPPLE AT SURGICAL SITE. DARCY DOES HAVE SMALL AMOUNT OF BLOODY DRAINAGE PRESENT.
[2017-09-04] VITALS (37 sets, daily range): BP systolic 116–142; BP diastolic 46–65; BMI 30.7
--- NOTE | 2017-09-04 01:00 | NUR ---
PT SLEEPING EASILY AWAKEN. NEUROCHECKS INTACT. NO SIGNIFICANT CHANGES
--- NOTE | 2017-09-04 03:00 | NUR ---
SHIFT REASSESSMENT COMPLETED. NO SIGNIFICANT CHANGES. PT REMAINS MONITORED PER STANDARD CVICU PROTOCOL ALL ALARMS VERIFIED. NITRO REMAINS AT 3CC VSS AT THIS TIME. PT IS AWAKE. STATES HE HAS A "TWINGE OF PAIN EVERY ONCE IN A WHILE" DENIES NEED FOR MEDICINAL INTERVENTION. STATES 0 WHEN PRESSED FOR A "NUMBER". RIGHT SIDE OF NECK AT SURGICAL SITE REMAINS SOFT TO LIGHT TOUCH. NO DRAINAGE. DARCY WITH BLOODY DRAINAGE PRESENT.
--- NOTE | 2017-09-04 05:30 | NUR ---
RICHARD DALAL HERE TO PULL DARCY DRAIN. DARCY D/C'D WITHOUT INCIDENT. PT TOLERATED WILL
--- NOTE | 2017-09-04 07:15 | NUR ---
RECEIVED PT FOR CARE. PT SITTING UP IN BED WATCHING TV. DENIES PAIN AT THIS TIME. VSS. NITRO GTT OFF. WILL GIVE A.M. MEDS. TOLERATING PO.
--- NOTE | 2017-09-04 08:01 | NUR ---
DR. SHRESTHA AT BEDSIDE. UPDATED ON PT'S STATUS.
[2017-09-04] MEDS ORDERED: ULTRAM50 MG PO (09:44)
--- NOTE | 2017-09-04 10:30 | NUR ---
LEFT RADIAL A-LINE D/C'D WITH CATH TIP INTACT. PT TOLERATED WELL. CARL CATH D/C'D. PT GIVEN URINAL. PT AMBULATED TO CHAIR. TOLERATED WELL. STEADY GAIT NOTED. CALL LIGHT WITHIN REACH.
--- NOTE | 2017-09-04 11:20 | NUR ---
SCOTT SILVER RN AT BEDSIDE. DISCUSSED DISCHARGE INSTRUCTIONS WITH PT. HE VOICED UNDERSTANDIG.
--- NOTE | 2017-09-04 12:15 | NUR ---
LEFT DLSC D/C'D WITH CATH TIP INTACT. PT TOLERATED WELL.
--- NOTE | 2017-09-04 12:40 | NUR ---
PT TAKEN BY WHEELCHAIR TO VEHICLE. NO S/S OF DISTRESS NOTED. ALL PAPERWORK IN HAND. REPORTS THAT HE HAS ALL BELONGINGS IN HAND.
--- NOTE | 2017-09-04 12:58 | NUR ---
Is the patient Alert and Oriented? Yes 0 * How many steps to enter\exit or inside your home? 3-4 0 * PCP Dr. Parson 0 * Pharmacy [facility] AT [facility] 0 * Preadmission Environment Home Alone 0 * ADLs Independent 0 * Equipment None 0 * List name and contact numbers for known caregivers / representatives who currently or will assist patient after discharge: BROTHER: OCTAVIANO [phone] 0 * Community resources currently utilized None 0 * Additional services required to return to the preadmission environment? No 0 * Can the patient safely return to the preadmission environment? Yes 0 * Has this patient been hospitalized within the prior 30 days at any hospital? No PATIENT IS AWAKE AND ALERT SITTING AT BEDSIDE. HIS BROTHER, OCTAVIANO, IS PRESENT AND WILL DRIVE HIM HOME. PATIENT STATES HIS BROTHER AND SISTER LIVE CLOSE AND WILL ASSIST HIM NEEDED. PATIENT'S PCP IS DR. PARSON. HE GETS HIS MEDS FROM [facility] IN THE [facility]. PATIENT DENIES USE OF ANY DME AND STATES HE HAS NEVER HAD HOME HEALTH. PATIENT DENIES ANY DISCHARGE NEEDS AT THIS TIME.
--- NOTE | 2017-09-07 11:44 | OP ---
PATIENT NAME: KATIE ARMSTRONG MEDICAL RECORD: [id number] :43 [facility] ADMISSION DATE:09/03/17 SURGEON: KRYS SHRESTHA MD DATE OF OPERATION: 09/03/2017 SURGEON: Krys Shrestha MD. ANESTHESIA: General, Dr. Pizano. OPERATION PERFORMED: Right carotid endarterectomy with patch angioplasty. PREOPERATIVE DIAGNOSIS: Severe right internal carotid artery stenosis. POSTOPERATIVE DIAGNOSIS: Severe right internal carotid artery stenosis. INDICATION FOR OPERATION: Severe right internal carotid artery stenosis. FINDINGS AT OPERATION: Severe right internal carotid artery stenosis. There was no EEG change with clamping or unclamping of the carotid artery. ESTIMATED BLOOD LOSS: Less than 50 mL. DESCRIPTION OF PROCEDURE: After informed consent, adequate preoperative medication evaluation, the patient was brought to the operating room, placed on the table in the supine position. After induction of general endotracheal anesthesia and application of appropriate monitoring devices, the right neck and chest were prepped and draped in a sterile field, utilizing Betadine scrub, alcohol, and Betadine solution. A Betadine-impregnated drape was also used. An oblique incision was made in the skin crease. Dissection carried down the fascia. Hemostasis was maintained with electrocautery. Facial vein was identified and divided. Utilizing sharp dissection, the common carotid, internal and external carotid arteries were dissected free from surrounding structures, protecting the neurological structures. The patient was given a calculated dose of heparin. After 3 minutes, clamps were applied. After 2 minutes, no EEG changes. The arteriotomy was made and extended with Go scissors. Artery underwent endarterectomy sharply. Artery underwent extensive debridement and irrigation. Utilizing a CorMatrix vascular patch and running 7-0 Prolene suture, the arteriotomy was closed with patch angioplasty technique. All maneuvers to remove trapped air were performed. The clamps were removed sequentially. There were no EEG changes. The patient was given a calculated dose of protamine to reverse the heparin. Hemostasis was achieved and a #7 Arley-Mckinney drain was left in the depth of wound and brought through the base of the neck. Neck was again irrigated. Instrument count and sponge count were correct times 2. Neck was closed in layers utilizing 3-0 Vicryl on the platysma, 5-0 subcuticular Monocryl on the skin. Sterile dressings were applied. The patient tolerated the procedure well and was transferred to the ICU in satisfactory condition. TRANSINT:[id number] Voice Confirmation ID: [id number] DOCUMENT ID: [id number] OPERATIVE REPORT [id number] KATIE ARMSTRONG EDWARD MD at 1144 CC: [id number] DICTATION DATE: 09/03/17 160 DOCENT COORDINATOR: 09/03/17 1630 DIS IN 09/04/17 [place] [id number] [place] [id number]
== END 2017-09-04 12:40 | disposition home or self-care (01) | DRG 39 ==
LOC: D.SDCHOLD 07:05 → D.CVICU 07:05 → D.SDCHOLD 13:15 → D.CVICU 09-04 12:40
PROVIDERS: ADMIT Internal Medicine Cardiovascular Disease
PROC: 03UK0JZ Supplement Right Internal Carotid Artery with Synthetic Substitute, Open Approach (ICD-10-PCS; 2017-09-03)
PROC: 03CK0ZZ Extirpation of Matter from Right Internal Carotid Artery, Open Approach (ICD-10-PCS; principal; 2017-09-03 13:15)
DX: I65.23 Occlusion and stenosis of bilateral carotid arteries (principal); E78.5 Hyperlipidemia, unspecified; I10 Essential (primary) hypertension; R47.1 Dysarthria and anarthria; I25.119 Atherosclerotic heart disease of native coronary artery with unspecified angina pectoris; E11.65 Type 2 diabetes mellitus with hyperglycemia

== ENCOUNTER 2017-11-07 11:06 | Emergency (ER) | payer MEDICARE, OTHER ==
[2017-09-04 09:39] VITALS: BMI 30.7
[~2017-11-07 11:06] MED LIST changes: +ASPIRIN325 MG PO; +METOPROLOL TART50 MG PO
[2017-11-07 11:59] LABS: BASOPHILS 0.2 % (0-2); EOSINOPHILS 3.4 % (0-7); HEMATOCRIT 39.3 % (42.0-54.0); HEMOGLOBIN 13.5 g/dL (13.5-17.5); IMMATURE GRANULOCYTES 0.3 % (0-5); LYMPHOCYTES 17.1 % (15-50); MCH 30.6 pg (26.0-34.0); MCHC 34.4 g/dL (31.0-37.0); MCV 89.1 fL (80.0-100.0); MEAN PLATELET VOLUME 10.1 fL (7.4-10.4); MONOCYTES 4.9 % (2-11); NEUTROPHILS 74.1 % (40-80); PLATELET COUNT 242 10x3/uL (130-400); RBC 4.41 10x6/uL (4.20-6.10); RDW 12.9 % (11.5-14.5); WBC 10.2 10x3/uL (4.8-10.8)
[2017-11-07 12:20] LABS: ALBUMIN 4.1 g/dL (3.4-5.0); ANION GAP 15.7 mmol/L (8-16); BILIRUBIN - TOTAL 0.3 mg/dL (0.2-1.3); CALCIUM 9.5 mg/dL (8.5-10.1); CARBON DIOXIDE 25.5 mmol/L (21.0-32.0); CREATININE - SERUM 1.2 mg/dL (0.6-1.3); POTASSIUM - SERUM 4.2 mmol/L (3.5-5.1); PROTEIN - SERUM 7.2 g/dL (6.4-8.2)
== END 2017-11-07 14:10 | disposition home or self-care (01) ==
LOC: D.ER 11:06
PROVIDERS: Emergency Medicine
DX: R22.1 Localized swelling, mass and lump, neck (principal); E11.9 Type 2 diabetes mellitus without complications; I10 Essential (primary) hypertension

== ENCOUNTER → 2018-04-08 08:20 | Outpatient (CLI) | payer OTHER ==
[2017-09-04 09:39] VITALS: BMI 30.7
[2018-04-08 08:46] LABS: APPEARANCE CLEAR (CLEAR); BILIRUBIN NEGATIVE (NEGATIVE); COLOR YELLOW (YELLOW); GLUCOSE NEGATIVE (NEGATIVE); KETONE NEGATIVE (NEGATIVE); NITRITE NEGATIVE (NEGATIVE); PROTEIN TRACE mg/dL (NEGATIVE); UROBILINOGEN NORMAL (NORMAL)
[2018-04-08 08:48] LABS: WHITE CELLS - URINE 25-50 /hpf (0-5)
[2018-04-08 08:49] LABS: BACTERIA FEW /hpf (NONE SEEN); EPITHELIAL CELLS 0-5 /hpf (0-5); MUCUS >1+ /lpf (NONE SEEN)
[2018-04-08 08:57] LABS: ALBUMIN 3.8 g/dL (3.4-5.0); ALKALINE PHOSPHATASE 67 U/L (46-116); ALT (SGPT) 43 U/L (10-68); BILIRUBIN - TOTAL 0.51 mg/dL (0.2-1.3); CALC OSMOLALITY 283 mosm/kg (275-300); CARBON DIOXIDE 25.9 mmol/L (21.0-32.0); CHLORIDE - SERUM 105 mmol/L (98-107); CREATININE - SERUM 0.8 mg/dL (0.6-1.3); POTASSIUM - SERUM 4.1 mmol/L (3.5-5.1); SODIUM 141 mmol/L (136-145); UREA NITROGEN 13 mg/dL (7-18); eGFR NON AFRICAN AMERICAN > 90 mL/min (90-120)
[2018-04-08 08:58] LABS: GLUCOSE 150 mg/dL (74-106)
== END | disposition home or self-care (01) ==
LOC: D.LAB 08:20
PROVIDERS: Orthopaedic Surgery
DX: E11.9 Type 2 diabetes mellitus without complications (principal)

== ENCOUNTER → 2018-12-12 07:36 | Outpatient (CLI) | payer MEDICARE, OTHER ==
[2017-09-04 09:39] VITALS: BMI 30.7
== END | disposition home or self-care (01) ==
LOC: D.US 07:36
DX: I65.23 Occlusion and stenosis of bilateral carotid arteries (principal)

== ENCOUNTER → 2020-01-25 11:34 | Outpatient (CLI) | payer MEDICARE, OTHER ==
[2017-09-04 09:39] VITALS: BMI 30.7
== END | disposition home or self-care (01) ==
LOC: D.US 11:34
PROVIDERS: ATTEND Internal Medicine Cardiovascular Disease
DX: I65.29 Occlusion and stenosis of unspecified carotid artery (principal)